=== PATIENT | male | born 1975 | race African-American/Black ===

== ENCOUNTER 2017-07-18 15:18 | Outpatient (CLI) | payer OTHER ==
[2017-07-18 19:47] LABS: CALCIUM 9.7 mg/dL (8.5-10.3)
== END 2017-07-18 15:19 | disposition home or self-care (01) ==
LOC: LAB.WCP 15:18
PROVIDERS: ATTEND Physician Assistant Medical
DX: Z51.81 Encounter for therapeutic drug level monitoring (principal); Z79.899 Other long term (current) drug therapy
CPT/HCPCS: 36415; 80048

== ENCOUNTER 2017-08-04 15:20 | Outpatient (CLI) | payer OTHER | END 2017-08-04 15:21 | disposition home or self-care (01) | LOC: SC 15:20 | PROVIDERS: ATTEND Internal Medicine Pulmonary Disease | DX: G47.33 Obstructive sleep apnea (adult) (pediatric) (principal) | CPT/HCPCS: 99203; 99212 ==

== ENCOUNTER 2017-09-24 22:07 | Outpatient (CLI) | payer OTHER | END 2017-09-24 22:08 | disposition home or self-care (01) | LOC: SC 22:07 | PROVIDERS: ATTEND Internal Medicine Pulmonary Disease | DX: G47.33 Obstructive sleep apnea (adult) (pediatric) (principal) | CPT/HCPCS: 95810 ==

== ENCOUNTER 2017-11-10 14:19 | Outpatient (CLI) | payer OTHER | END 2017-11-10 14:20 | disposition home or self-care (01) | LOC: SC 14:19 | PROVIDERS: ATTEND Nurse Practitioner Family | DX: G47.33 Obstructive sleep apnea (adult) (pediatric) (principal) | CPT/HCPCS: 99212; 99214 ==

== ENCOUNTER 2017-11-28 09:38 | Outpatient (CLI) | payer OTHER ==
--- NOTE | 2017-11-28 11:37 | Ultrasound Report ---
COMPLETE ABDOMINAL ULTRASOUND: 11/28/2017 CLINICAL INDICATION: Acute abdomen pain. TECHNIQUE: Real-time scanning was performed with member service representative static images obtained. FINDINGS: The liver measures 18 cm. Hepatic echogenicity appears unremarkable. No focal parenchymal lesion or intrahepatic biliary dilatation is present. The common bile duct measures 6 mm. There is a calculus in the fundus of the gallbladder, with localized tenderness, compatible with calculous cholecystitis. No pericholecystic fluid is seen. The kidneys are normal, with the right measuring 12.5 cm, and the left measuring 11.7 cm. The pancreas is obscured by bowel gas. The spleen measures 8 cm, and demonstrates normal echotexture. The visualized abdominal aorta is normal in caliber. The inferior vena cava is unremarkable. No free fluid is present. IMPRESSION: GALLSTONE, WITH LOCALIZED TENDERNESS OVER THE GALLBLADDER, COMPATIBLE WITH CALCULOUS CHOLECYSTITIS. NO EVIDENCE OF BILIARY OBSTRUCTION. TD: 11/28/2017 11:36
== END 2017-11-28 09:39 | disposition home or self-care (01) ==
LOC: DI 09:38
PROVIDERS: ATTEND Specialist
DX: K80.80 Other cholelithiasis without obstruction (principal)
CPT/HCPCS: 76700

== ENCOUNTER 2017-11-28 11:18 | Outpatient (CLI) | payer OTHER ==
[2017-11-28 11:47] LABS: BASOPHILS % (AUTO) 0.3 %; EOSINOPHILS # (AUTO) 0.1 10^3/uL (0.0-0.7); EOSINOPHILS % (AUTO) 0.6 %; HGB - HEMOGLOBIN 16.4 g/dL (14.0-18.0); LYMPHOCYTES # (AUTO) 1.1 10^3/uL (1.5-3.5); LYMPHOCYTES % (AUTO) 11.5 %; MEAN CORPUSCULAR HEMOGLOBIN 29.6 pg (27.0-31.0); MEAN CORPUSCULAR HGB CONC 34.2 g/dL (32.0-36.0); MEAN CORPUSCULAR VOLUME 86.6 fL (80.0-94.0); MEAN PLATELET VOLUME 8.4 fL (7.4-11.4); MONOCYTES # (AUTO) 1.4 10^3/uL (0.0-1.0); MONOCYTES % (AUTO) 14.2 %; NEUTROPHILS % (AUTO) 73.4 %; PLT - PLATELET COUNT 159 10^3/uL (130-450); RED BLOOD COUNT 5.55 10^6/uL (4.70-6.10); RED CELL DISTRIBUTION WIDTH 13.5 % (12.0-15.0); WHITE BLOOD COUNT 9.5 x10^3/uL (4.8-10.8)
[2017-11-28 12:00] LABS: ALBUMIN 3.9 g/dL (3.2-5.5); ALBUMIN/GLOBULIN RATIO 1.3 (1.0-2.2); BILIRUBIN,TOTAL 1.1 mg/dL (0.2-1.0); CALCIUM 8.9 mg/dL (8.5-10.3); CREATININE 0.6 mg/dL (0.6-1.2)
== END 2017-11-28 11:19 | disposition home or self-care (01) ==
LOC: LAB 11:18
PROVIDERS: ATTEND Specialist
DX: R10.0 Acute abdomen (principal)
CPT/HCPCS: 36415; 80053; 85025

== ENCOUNTER 2017-11-28 16:49 | Observation (INO) | payer OTHER ==
[2017-11-28] MEDS ORDERED: ONDANSETRON 4 MG/2 ML VIAL IVP STA (17:10)
[2017-11-28] MEDS ORDERED: SODIUM CHLORIDE 0.9% 1,000 ML IV ONE (17:10)
[2017-11-28] MEDS ORDERED: HYDROmorphone 1 MG/ML SYRINGE IVP STA ×2 (17:10→19:01)
--- NOTE | 2017-11-28 17:10 | ED Physician Documentation ---
PD HPI ABD PAIN - Stated complaint Stated Complaint: AB PX - Chief complaint Chief Complaint: Abd Pain - History obtained from History obtained from: Patient - History of Present Illness Timing - onset: Other (He had a remote appendectomy. He has had 3 days of coming and going central abdominal pain worse after eating but nonradiating associated with one episode of vomiting and some loose stools at the outset but now decreased bowel movements but still flatus. He was seen in a walk-in clinic and had lab work done and an ultrasound. The lab work was basically unremarkable and the ultrasound was notable for a impacted gallstone and tenderness over the gallbladder and he was referred here for surgical evaluation.) Review of Systems Ten Systems: 10 systems reviewed and negative Constitutional: denies: Fever, Chills Throat: denies: Dental pain / toothache, Sore throat Cardiac: denies: Chest pain / pressure, Palpitations Respiratory: denies: Dyspnea, Cough PD PAST MEDICAL HISTORY - Past Medical History Past Medical History: Yes Cardiovascular: Hypertension - Allergies Allergies/Adverse Reactions: Allergies Allergy/AdvReac Type Severity Reaction Status Date / Time No Known Drug Allergies Allergy Verified 07/17/16 12:24 - Social History Does the pt smoke?: Yes Smoking Status: Current every day smoker - Family History Family history: reports: Non contributory PD ED PE NORMAL - Vitals Vital signs reviewed: Yes - General General: Alert and oriented X 3, Other (uncomfortable) - HEENT HEENT: PERRL, EOMI - Neck Neck: Supple, no meningeal sign, No bony TTP - Cardiac Cardiac: RRR, No murmur - Respiratory Respiratory: No respiratory distress, Clear bilaterally - Abdomen Abdomen: Normal bowel sounds, Soft, Other (mild upper abd ttp) - Back Back: No CVA TTP, No spinal TTP - Derm Derm: Normal color, Warm and dry - Extremities Extremities: No edema, No calf tenderness / cord - Neuro Neuro: Alert and oriented X 3, Normal speech - Psych Psych: Normal mood, Normal affect Results - Vitals Vitals: Vital Signs - 24 hr 11/28/17 16:53 Temperature 36.2 C L Heart Rate 79 Respiratory 18 Rate Blood Pressure 139/91 H O2 Saturation 98 Oxygen O2 Source Room air PD MEDICAL DECISION MAKING - ED course ED course: Dr. Randolph arrived expeditiously after the patient arrived and evaluated the patient who felt more likely he had a bowel obstruction and he will place him in observation to have a contrast-enhanced CAT scan with NG tube contrast. Departure - Departure Disposition: ED Place in Observation Clinical Impression: Abdominal pain Qualifiers: Abdominal location: generalized Qualified Code(s): R10.84 - Generalized abdominal pain Condition: Stable
[2017-11-28] MEDS ORDERED: SODIUM CHLORIDE FLUSH 0.9% 10 ML SYRINGE IVP PRN (17:28)
[2017-11-28] MEDS ORDERED: ONDANSETRON 4 MG/2 ML VIAL IVP PRN (17:33)
[2017-11-28] MEDS ORDERED: HYDROmorphone 1 MG/ML SYRINGE IVP PRN ×2 (17:34)
[2017-11-28] MEDS ORDERED: LORazepam 2 MG/ML VIAL IVP PRN (17:41)
[2017-11-28] MEDS ORDERED: LIDOCAINE 2% URO-JET 5 ML SYRINGE UR STA (17:42)
[2017-11-28] MEDS ORDERED: IOPAMIDOL-300 100 ML VIAL ONE (17:43)
[2017-11-28] MEDS ORDERED: IOPAMIDOL-300 50 ML VIAL ONE (17:43)
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
[2017-11-28] MEDS ORDERED: IOPAMIDOL-300 100 ML VIAL IVP ONE (20:04)
[2017-11-28] MEDS ORDERED: IOPAMIDOL-300 50 ML VIAL PO ONE (20:04)
--- NOTE | 2017-11-28 20:44 | CT Report ---
EXAM: CT ABDOMEN AND PELVIS EXAM DATE: 11/28/2017 08:08 PM. CLINICAL HISTORY: IV and NGT contrast, per Dr Randolph for abd pain. COMPARISONS: Same day ultrasound. TECHNIQUE: Routine helical CT imaging was performed through the abdomen and pelvis. IV contrast: 100M L ISOVUE 300. Enteric contrast: No. Reconstructions: Coronal and sagittal. In accordance with CT protocol optimization, one or more of the following dose reduction techniques w ere utilized for this exam: automated exposure control, adjustment of mA and/or KV based on patient s ize, or use of iterative reconstructive technique. FINDINGS: Lung Bases: Unremarkable. Liver: Normal. No masses. Gallbladder/Bile Ducts: Cholelithiasis. Spleen: Normal. Pancreas: Normal. Adrenal Glands: Normal. Kidneys: Nonobstructing right renal stone measures 4 mm. No masses or hydronephrosis. Peritoneal Cavity/Bowel: Enteric tube terminates in the upper gastric body. Stomach is mildly distend ed. Dilated mid small bowel loops, mostly involving jejunum, with transition point to normal caliber ileum in the central mesentery (image 37 series 3). The transitioning bowel demonstrates mucosal thic kening in hyperenhancement. Mild mesenteric vascular engorgement. No free fluid, free air or adenopat hy. Prominent but not pathologically enlarged mesenteric lymph nodes. No pneumatosis. Scattered gas a nd stool throughout mostly decompressed colon. Pelvic Organs: Unremarkable. Vasculature: No aneurysms or other significant abnormality. Bones: No significant abnormality. Other: None. IMPRESSION: 1. Small bowel obstruction with transition point in the central mesentery. The bowel near the transit ion point demonstrates mucosal thickening and hyperenhancement, which may reflect enteritis, likely i nfectious or inflammatory. No pneumatosis or pneumoperitoneum. 2. Cholelithiasis. 3. Nonobstructing right renal stone. [facility] Referring Provider Line: [phone] SITE ID: [id number]
[2017-11-28 21:30] LABS: BILIRUBIN,URINE NEGATIVE (NEGATIVE); GLUCOSE, URINE (UA) NEGATIVE (NEGATIVE); KETONES,URINE (UA) NEGATIVE (NEGATIVE); LEUKOCYTE ESTERASE, URINE NEGATIVE (NEGATIVE); NITRITE,URINE NEGATIVE (NEGATIVE); OCCULT BLOOD,URINE NEGATIVE (NEGATIVE); PH,URINE 6.5 PH (5.0-7.5); PROTEIN,URINE NEGATIVE (NEGATIVE); UROBILINOGEN,URINE 0.2 (NORMAL) E.U./dL (NORMAL)
[2017-11-28 21:37] LABS: BACTERIA,URINE None Seen /HPF (None Seen); CLARITY,URINE CLEAR (CLEAR); RBC,URINE None Seen /HPF (0-5); SQUAMOUS EPITHELIAL CELL,UR NONE SEEN (<= Few)
[2017-11-28] MEDS: NS W/20 MEQ KCL 1,000 ML IV SCH (21:37)
[2017-11-28 21:38] LABS: CRYSTALS,URINE 3-5 Calcium Oxalate /LPF
[2017-11-28] MEDS: NICOTINE 7 MG PATCH TOP SCH (22:13)
[2017-11-29] MEDS: SODIUM CHLORIDE FLUSH 0.9% 10 ML SYRINGE IVP SCH ×2 (01:53→10:32)
[2017-11-29] MEDS: NS W/20 MEQ KCL 1,000 ML IV SCH ×3 (02:45→13:47)
--- NOTE | 2017-11-29 05:33 | XRAY Report ---
EXAM: ABDOMINAL SERIES AND PA CHEST EXAM DATE: 11/29/2017 05:18 AM. CLINICAL HISTORY: Abdominal pain. COMPARISON: Chest, 07/17/2016. TECHNIQUE: 2 views abdomen and 1 view chest. FINDINGS: CHEST: Lungs/Pleura: No alveolar consolidation or pleural effusion seen. No pneumothorax. Mediastinum: Within exam limitations, cardiomediastinal contour is normal. ABDOMEN: Bowel Gas Pattern: Persistent dilated small bowel loops with air-fluid levels. Free Air: None. Other: Enteric tube tip in the proximal stomach. IMPRESSION: 1. Small bowel obstruction. 2. Enteric tube tip in the proximal stomach. [facility] Referring Provider Line: [phone] SITE ID: [id number]
--- NOTE | 2017-11-29 05:33 | XRAY Preliminary Report ---
Exam: XR ABDOMEN ACUTE IMPRESSION: 1. Small bowel obstruction. 2. Enteric tube tip in the proximal stomach. [facility] SITE ID: [id number]
[2017-11-29 06:20] LABS: ALBUMIN 3.4 g/dL (3.2-5.5); ALBUMIN/GLOBULIN RATIO 1.2 (1.0-2.2); BILIRUBIN,TOTAL 1.2 mg/dL (0.2-1.0); CALCIUM 8.5 mg/dL (8.5-10.3); CREATININE 0.7 mg/dL (0.6-1.2); TOTAL PROTEIN 6.2 g/dL (6.7-8.2)
[2017-11-29 06:35] LABS: INR 1.2 (0.8-1.2); PT - PROTHROMBIN TIME 13.3 secs (9.9-12.6)
[2017-11-29] MEDS: NICOTINE 7 MG PATCH TOP SCH (08:24)
[2017-11-29] MEDS ORDERED: hydroCHLOROthiazide 12.5 MG CAPSULE PO SCH (09:00)
[2017-11-29] MEDS ORDERED: LISINOPRIL 5 MG TABLET PO SCH (09:00)
[2017-11-29] MEDS ORDERED: NS W/20 MEQ KCL 1,000 ML IV SCH (09:35)
[2017-11-29 15:44] VITALS: BP 126/83
--- NOTE | 2017-11-29 15:58 | Discharge Plan ---
Discharge Plan Disposition: 01 Home, Self Care Condition: Stable Diet: Soft Activity Restrictions: No Restrictions Shower Restrictions: No Driving Restrictions: No Weight Bearing: Full Weight No Smoking: If you smoke, Please STOP! Call for help. Follow-up with: FREDDY LAGUNAS [Primary Care Provider] - 1 Week
== END 2017-11-29 16:47 | disposition home or self-care (01) ==
LOC: ED 16:49 → OBS 17:28
PROVIDERS: ADMIT Surgery; ATTEND Surgery
DX: K56.609 Unspecified intestinal obstruction, unspecified as to partial versus complete obstruction (principal); K80.20 Calculus of gallbladder without cholecystitis without obstruction; N20.0 Calculus of kidney; I10 Essential (primary) hypertension; G47.33 Obstructive sleep apnea (adult) (pediatric); F41.0 Panic disorder [episodic paroxysmal anxiety]; F17.210 Nicotine dependence, cigarettes, uncomplicated; E66.9 Obesity, unspecified; Z68.38 Body mass index [BMI] 38.0-38.9, adult; Z91.19 Patient's noncompliance with other medical treatment and regimen
CPT/HCPCS: 36415; 74022; 74177; 76700; 80053; 81001; 85018; 85025; 85610; 96361; 96374; 96376; 99218; 99283; 99284; A9270; J1170; Q9967; 87086

== ENCOUNTER 2017-12-15 15:48 | Outpatient (CLI) | payer OTHER | END 2017-12-15 15:49 | disposition home or self-care (01) | LOC: SC 15:48 | PROVIDERS: ATTEND Nurse Practitioner Family | DX: G47.33 Obstructive sleep apnea (adult) (pediatric) (principal) | CPT/HCPCS: 99212; 99214 ==

== ENCOUNTER 2017-12-29 20:24 | Outpatient (CLI) | payer OTHER | END 2017-12-29 20:25 | disposition home or self-care (01) | LOC: SC 20:24 | PROVIDERS: ATTEND Internal Medicine Pulmonary Disease | DX: G47.33 Obstructive sleep apnea (adult) (pediatric) (principal) | CPT/HCPCS: 95811 ==

== ENCOUNTER 2018-02-09 15:01 | Outpatient (CLI) | payer OTHER | END 2018-02-09 15:02 | disposition home or self-care (01) | LOC: SC 15:01 | PROVIDERS: ATTEND Internal Medicine Pulmonary Disease | DX: G47.33 Obstructive sleep apnea (adult) (pediatric) (principal) | CPT/HCPCS: 99212; 99213 ==

== ENCOUNTER 2018-05-26 14:50 | Outpatient (CLI) | payer OTHER | END 2018-05-26 14:51 | disposition home or self-care (01) | LOC: SC 14:50 | PROVIDERS: ATTEND Internal Medicine Pulmonary Disease | DX: G47.33 Obstructive sleep apnea (adult) (pediatric) (principal) | CPT/HCPCS: 99212; 99213 ==

== ENCOUNTER 2019-01-22 14:44 | Outpatient (CLI) | payer OTHER ==
--- NOTE | 2019-01-22 15:29 | XRAY Report ---
Reason: KNEE PAIN,RIGHT Procedure Date: 01/22/2019 Accession Number: [id number] / [id number] Procedure: XR - Knee 3 View RT CPT Code: FULL RESULT: EXAM: RIGHT KNEE RADIOGRAPHY EXAM DATE: 01/22/2019 03:07 PM. CLINICAL HISTORY: KNEE Pain, right. COMPARISON: None. TECHNIQUE: 3 views. FINDINGS: Bones: There is an approximate 2 x 3 cm diameter nonaggressive radiolucent bone lesion in the anterior tibial plateau with faintly sclerotic margins. No acute osseous abnormality. Joints: Minimal medial compartment joint space narrowing. Mild patellofemoral osteoarthritis. No joint effusion. Soft Tissues: Normal. No soft tissue swelling. IMPRESSION: 1. No acute osseous abnormality or joint effusion. 2. Mild bicompartmental osteoarthritis as discussed above. 3. There is an approximate 3 cm maximal diameter nonaggressive bone lesion in the anterior tibial plateau. Because the patient has knee pain, the next imaging option would be MRI right knee without and with IV contrast. JHONATAN
== END 2019-01-22 14:45 | disposition home or self-care (01) ==
LOC: DI 14:44
PROVIDERS: ATTEND Physician Assistant Medical
DX: M17.11 Unilateral primary osteoarthritis, right knee (principal); M89.9 Disorder of bone, unspecified

== ENCOUNTER 2019-02-05 14:22 | Outpatient (CLI) | payer OTHER ==
[2019-02-05] MEDS ORDERED: GADOBUTROL 10 MMOL/10 ML VIAL ONE (16:03)
[2019-02-05] MEDS ORDERED: GADOBUTROL 10 MMOL/10 ML VIAL IVP ONE (16:21)
--- NOTE | 2019-02-07 15:26 | MRI Report ---
Reason: KNEE PAIN,RIGHT Procedure Date: 02/05/2019 Accession Number: [id number] / [id number] Procedure: MRI - Knee RT W/WO CPT Code: FULL RESULT: EXAM: RIGHT KNEE MRI WITHOUT AND WITH CONTRAST EXAM DATE: 02/05/2019 04:19 PM. CLINICAL HISTORY: Abnormal right knee radiography. Possible proximal tibial bone lesion. Right knee pain. COMPARISON: Right knee radiography from 01/22/2019 and RIGHT KNEE MRI from 06/01/2010 3:01 PM. TECHNIQUE: Multiplanar, multisequence T1-weighted and fluid-sensitive sequences of the knee before and after administration of intravenous contrast. IV contrast: . Other: None. FINDINGS: Bones and articular cartilage: As seen previously, there are postoperative changes at the distal femur and proximal tibia from previous ACL reconstruction. There is a partially ossified, approximately 1.2 x 0.9 x 2.7 cm proximal tibial tunnel ganglion which corresponds to the radiographic findings. The ganglion is smaller and now partially ossified in comparison to the previous MRI from 06/01/2010. There are marginal osteophytes at the femoral condyles, tibial plateau, patella, and femoral trochlea. Focal subcortical marrow edema at the central aspect of the medial femoral condyle. Grade II-III chondromalacia of the medial femoral condyle. Focal full-thickness articular cartilage fissure at the posterior lateral aspect of the medial femoral condyle. Grade II-III chondromalacia and mild subchondral marrow edema at the medial tibial plateau. Grade III chondromalacia of the lateral femoral condyle. Focal grade 1 signal and mild subchondral marrow edema at the median ridge of the patella. Focal full-thickness articular cartilage fissure at the femoral trochlear groove. No acute fracture or bone lesions. Medial Meniscus: The medial meniscus is partially absent which may be from previous partial meniscectomy and/or degeneration. There is an oblique tear extending through the inferior surface at the posterior horn. There is a focal vertically oriented tear at the inner third and lateral aspect of the posterior horn. The findings are new since the previous study. Lateral Meniscus: Horizontal tear extending through the free edge at the inner third of the anterior horn which is new since the previous study. Small oblique tear extending through the inferior surface at the inner third of the posterior horn. Cruciate Ligaments: Complete tear of the ACL graft. The posterior cruciate ligament is intact. Collateral Ligaments: The medial collateral and lateral collateral ligamentous structures are intact. Tendons: The quadriceps, patellar, semimembranosus, and popliteus tendons are unremarkable. Musculature: No edema or fatty atrophy. Other: Small joint effusion. Mild synovial thickening and enhancement. No loose bodies. No popliteal cyst. The medial and lateral retinacula are intact. Scar tissue within the infrapatellar fat pad. IMPRESSION: 1. Postoperative changes at the distal femur and proximal tibia from previous ACL reconstruction. There is a 1.2 x 0.9 x 2.7 cm partially ossified ganglion within the proximal tibial tunnel which corresponds to the radiographic findings. The ganglion is smaller and now partially ossified in comparison to previous MRI from 2010. 2. Tricompartmental osteoarthritis which has increased since the previous study. 3. Partially absent medial meniscus which may be from previous partial meniscectomy and/or degeneration. There are oblique and vertical tears at the remaining posterior horn of the medial meniscus which are new since the previous study. 4. Horizontal tear extending through the free edge at the inner third of the anterior horn lateral meniscus which is new since the previous study. Small oblique tear at the inner third of the posterior horn lateral meniscus. 5. Complete tear of the ACL graft. 6. Small joint effusion. Mild synovitis. [facility]
== END 2019-02-05 14:23 | disposition home or self-care (01) ==
LOC: DI 14:22
PROVIDERS: ATTEND Physician Assistant Medical
DX: M67.461 Ganglion, right knee (principal); M17.11 Unilateral primary osteoarthritis, right knee; S83.241A Other tear of medial meniscus, current injury, right knee, initial encounter; S83.281A Other tear of lateral meniscus, current injury, right knee, initial encounter; S83.511A Sprain of anterior cruciate ligament of right knee, initial encounter; M25.461 Effusion, right knee; M65.9 Synovitis and tenosynovitis, unspecified
CPT/HCPCS: 73723; A9585

== ENCOUNTER 2019-05-25 14:10 | Emergency (ER) | payer OTHER ==
--- NOTE | 2019-05-25 15:56 | XRAY Report ---
Reason: twisting injury posterior pain Procedure Date: 05/25/2019 Accession Number: [id number] / [id number] Procedure: XR - Knee 4 View LT CPT Code: FULL RESULT: EXAM: LEFT KNEE RADIOGRAPHY EXAM DATE: 05/25/2019 03:43 PM. CLINICAL HISTORY: Twisting injury posterior pain. COMPARISON: KNEE 3 VIEW RT 01/22/2019 2:55 PM. TECHNIQUE: 4 views. FINDINGS: Bones: No fractures or bone lesions. Joints: There is a small amount of effusion. No dislocation or significant degenerative process. Soft Tissues: There is soft tissue swelling along the lateral collateral ligament. IMPRESSION: 1. Soft tissue swelling along the lateral collateral ligament and small amount of knee joint effusion, concern for intra-articular soft tissue injury. 2. Negative for fracture or dislocation. [facility]
--- NOTE | 2019-05-25 16:00 | ED Physician Documentation ---
PD HPI LOWER EXT INJURY - Stated complaint Stated Complaint: KNEE INJURY - Chief complaint Chief Complaint: Trauma Ext - History obtained from History obtained from: Patient - History of Present Illness PD HPI LOW EXT INJURY LOCATION: Left, Knee Type of injury: Fall, Twist Where injury occurred: Work Timing - onset: Today Timing - duration: Minutes Timing - details: Abrupt onset, Still present Improved by: Rest, Immobilization Worsened by: Moving, Palpating Associated symptoms: No: Weakness, Numbness, Tingling, Swelling Similar symptoms before: Diagnosis (knee sprain) Recently seen: Not recently seen - Additional information Additional information: 44-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 He states his knee feels unstable and the pain is worse with weightbearing. He has a prior injury to his right knee and this is in an articulating brace now. He has not injured his left knee previously Review of Systems Constitutional: denies: Fever Ears: denies: Ear pain Nose: denies: Congestion Throat: denies: Sore throat Respiratory: denies: Cough GI: denies: Vomiting PD PAST MEDICAL HISTORY - Past Medical History Cardiovascular: Hypertension, High cholesterol, Other Respiratory: CPAP use Endocrine/Autoimmune: None GI: None : Other HEENT: Other Psych: Anxiety Musculoskeletal: Osteoarthritis, Chronic back pain, Other Derm: None - Past Surgical History General: Appendectomy Ortho: Knee replacement - Present Medications Home Medications: Ambulatory Orders Medication Instructions Recorded Confirmed RX: Lisinopril/Hydrochlorothiazide 1 tab PO DAILY 11/28/17 11/28/17 [Lisinopril-Hctz 10-12.5 mg Tab] RX: Multivitamin [Theragran] 1 tab PO DAILY 11/28/17 11/28/17 - Allergies Allergies/Adverse Reactions: Allergies Allergy/AdvReac Type Severity Reaction Status Date / Time No Known Drug Allergies Allergy Verified 07/17/16 12:24 - Social History Does the pt smoke?: Yes Smoking Status: Current every day smoker Does the pt have substance abuse?: Yes - POLST Patient has POLST: No POLST Status: Full Code PD ED PE NORMAL - Vitals Vital signs reviewed: Yes (tachy ) - General General: Alert and oriented X 3, No acute distress, Well developed/nourished - HEENT HEENT: Atraumatic, PERRL, EOMI - Neck Neck: Supple, no meningeal sign - Respiratory Respiratory: No respiratory distress - Derm Derm: Normal color, Warm and dry, No rash - Extremities Extremities: No deformity, Other (There is no obvious swelling or effusion. There is ligamentous laxity to the anterior drawer sign and not to the medial or lateral collateral ligaments. ) - Neuro Neuro: Alert and oriented X 3, liquor tester 2-12 intact, No motor deficit, No sensory deficit, Normal speech Eye Opening: Spontaneous Motor: Obeys Commands Verbal: Oriented GCS Score: 15 - Psych Psych: Normal mood, Normal affect Results - Vitals Vitals: Vital Signs - 24 hr 05/25/19 05/25/19 14:32 16:07 Temperature 36.5 C Heart Rate 103 H 93 Respiratory 14 18 Rate Blood Pressure 128/73 133/87 H O2 Saturation 98 100 Oxygen O2 Source Room air - Rads (name of study) knee Radiology: Prelim report reviewed (Impression: 1. Soft tissue swelling along the lateral collateral ligament and small amount of knee joint effusion, concern for intra-articular soft tissue injury. Negative for fracture or dislocation.), EMP read indepedently, See rad report PD MEDICAL DECISION MAKING - ED course Complexity details: reviewed results, re-evaluated patient, considered differential, d/w patient ED course: 44-year-old male with a twist injury to the left knee has some laxity to the anterior drawer test. He does have effusion on his x-ray of the knee. He is placed into a long-leg knee immobilizer and referred to orthopedics for further work-up and treatment. Departure - Departure Disposition: 01 Home, Self Care Clinical Impression: Sprain of left knee Condition: Stable Instructions: ED Meniscal Injury Knee Poss, ED Sprain Knee Follow-Up: Kristen Mnceil PA-C [Primary Care Provider] - [facility] [Provider Group] Forms: Activity restrictions Discharge Date/Time: 05/25/19 16:13
[2019-05-25 16:08] VITALS: BP 133/87
== END 2019-05-25 16:13 | disposition home or self-care (01) ==
LOC: ED 14:10
DX: S83.92XA Sprain of unspecified site of left knee, initial encounter (principal); X50.1XXA Overexertion from prolonged static or awkward postures, initial encounter; Y93.89 Activity, other specified; Y92.62 Dock or shipyard as the place of occurrence of the external cause; Y99.0 Civilian activity done for income or pay; I10 Essential (primary) hypertension; F17.200 Nicotine dependence, unspecified, uncomplicated
CPT/HCPCS: 99282

== ENCOUNTER 2019-06-09 12:38 | Outpatient (CLI) | payer OTHER ==
--- NOTE | 2019-06-09 16:25 | MRI Report ---
Reason: SPRAIN OF UNSPECIFED SITE OF LEFT KNEE Procedure Date: 06/09/2019 Accession Number: [id number] / [id number] Procedure: MRI - Knee LT W/O CPT Code: FULL RESULT: EXAM: LEFT KNEE MRI WITHOUT CONTRAST EXAM DATE: 06/09/2019 01:58 PM. CLINICAL HISTORY: Sprain of unspecified site of left knee. Knee pain after trauma. COMPARISON: None. TECHNIQUE: Multiplanar, multisequence T1-weighted and fluid-sensitive sequences of the knee without contrast. Other: None. FINDINGS: Bones: There is some focal increased T2 signal at the posterolateral tibial plateau corner, small focal impaction injury also seen. Series 1001 image 5. No other areas of marrow edema. Articular Cartilage: Unremarkable. Medial Meniscus: The medial meniscus is intact. Lateral Meniscus: The lateral meniscus is intact. Cruciate Ligaments: The proximal aspect of the ACL shows some irregularity, distal portion is swollen. No focal discrete fluid-filled gap is identified. Significant disorganization is seen at the expected attachment point to the lateral femoral condyle. Series 801 image 28. PCL is normal. Collateral Ligaments: The medial collateral and lateral collateral ligamentous structures are intact. Tendons: The quadriceps, patellar, semimembranosus, and popliteus tendons are unremarkable. Musculature: No edema or fatty atrophy. Other: Small joint effusion. No popliteal cyst. No loose bodies. The medial and lateral retinacula are intact. Small to moderate medial plica. Some subcutaneous edema and swelling seen medially. IMPRESSION: 1. Focal bone bruising seen at the posterolateral tibial plateau corner, there is an adjacent impaction fracture at the posterolateral tibial plateau corner. 2. High-grade partial-thickness tear at the proximal ACL. This may be a full-thickness tear, difficult to assess because the amount of edema which is present in the notch. PCL is normal. 3. Menisci, collaterals, patella and femur have a normal appearance. Moderate-sized joint effusion. Medial plica. Soft tissue swelling anteriorly. RADIA
== END 2019-06-09 12:39 | disposition home or self-care (01) ==
LOC: DI 12:38
PROVIDERS: ATTEND Orthopaedic Surgery Sports Medicine
DX: S82.142A Displaced bicondylar fracture of left tibia, initial encounter for closed fracture (principal); S83.512A Sprain of anterior cruciate ligament of left knee, initial encounter; M25.462 Effusion, left knee

== ENCOUNTER 2019-09-13 15:25 | Outpatient (CLI) | payer OTHER ==
[2019-09-13 15:43] LABS: BASOPHILS # (AUTO) 0.1 10^3/uL (0.0-0.1); BASOPHILS % (AUTO) 0.6 %; EOSINOPHILS # (AUTO) 0.2 10^3/uL (0.0-0.7); EOSINOPHILS % (AUTO) 1.8 %; HGB - HEMOGLOBIN 16.7 g/dL (14.0-18.0); LYMPHOCYTES # (AUTO) 2.3 10^3/uL (1.5-3.5); LYMPHOCYTES % (AUTO) 24.5 %; MEAN CORPUSCULAR HEMOGLOBIN 28.3 pg (27.0-31.0); MEAN CORPUSCULAR HGB CONC 32.6 g/dL (32.0-36.0); MEAN CORPUSCULAR VOLUME 86.9 fL (80.0-94.0); MEAN PLATELET VOLUME 9.7 fL (7.4-11.4); NEUTROPHILS # (AUTO) 5.7 10^3/uL (1.5-6.6); NEUTROPHILS % (AUTO) 61.3 %; PLT - PLATELET COUNT 197 10^3/uL (130-450); RED CELL DISTRIBUTION WIDTH 13.8 % (12.0-15.0); WHITE BLOOD COUNT 9.3 x10^3/uL (4.8-10.8)
[2019-09-13 16:01] LABS: ALBUMIN 4.1 g/dL (3.2-5.5); ALBUMIN/GLOBULIN RATIO 1.3 (1.0-2.2); BILIRUBIN,TOTAL 0.5 mg/dL (0.2-1.0); CALCIUM 9.5 mg/dL (8.5-10.3); CREATININE 0.9 mg/dL (0.6-1.2); TOTAL PROTEIN 7.3 g/dL (6.7-8.2)
== END 2019-09-13 15:26 | disposition home or self-care (01) ==
LOC: LAB 15:25
PROVIDERS: ATTEND Orthopaedic Surgery Sports Medicine
DX: Z01.812 Encounter for preprocedural laboratory examination (principal); S83.512D Sprain of anterior cruciate ligament of left knee, subsequent encounter
CPT/HCPCS: 36415; 80053; 80323; 81599; 85025

== ENCOUNTER 2019-09-15 06:12 | Day surgery (SDC) | payer OTHER ==
[2019-09-15] MEDS ORDERED: NEOSTIGMINE 1 MG/1 ML 10 ML MDV IVP ONE (06:13)
[2019-09-15] MEDS ORDERED: KETOROLAC 30 MG/ML VIAL IVP ONE (06:13)
[2019-09-15] MEDS ORDERED: GLYCOPYRROLATE 1 MG/5 ML VIAL IVP ONE (06:13)
[2019-09-15] MEDS ORDERED: ROCURONIUM 50 MG/5 ML VIAL IVP ONE (06:13)
[2019-09-15] MEDS ORDERED: MIDAZOLAM 2 MG/2 ML VIAL IVP ONE (06:13)
[2019-09-15] MEDS ORDERED: PROPOFOL 200 MG/20 ML VIAL IVP ONE (06:13)
[2019-09-15] MEDS ORDERED: CEFAZOLIN SODIUM IN 0.9 % NACL 2 GM/100 ML BAG IV ONE (06:23)
[2019-09-15] MEDS ORDERED: LACTATED RINGERS 1,000 ML IV ONE ×2 (06:28→08:49)
[2019-09-15] MEDS ORDERED: EPINEPHrine 1 MG/ML AMP ONE (06:53)
--- NOTE | 2019-09-15 07:15 | ANESTHESIA ---
Pre-Anesthesia VS, & Labs - Diagnosis L knee grade 3 ACL sprain - Procedure L AACL reconstruction w/autograft, hamstring Vital Signs: Temp Pulse Resp BP Pulse Ox 36 C L 79 16 137/98 H 97 09/15/19 06:28 09/15/19 06:28 09/15/19 06:28 09/15/19 06:28 09/15/19 06:28 Height 5 ft 9 in Weight (kg) 112.6 kg Body Mass Index 33.9 - NPO >8 hours - Lab Results Lab results reviewed: Yes Home Medications and Allergies Lisinopril/Hydrochlorothiazide [Lisinopril-Hctz 10-12.5 mg Tab] 1 tab PO DAILY 11/28/17 Allergies/Adverse Reactions: Allergies Allergy/AdvReac Type Severity Reaction Status Date / Time No Known Drug Allergies Allergy Verified 07/17/16 12:24 Anes History & Medical History - Anesthetic History Anesthesia Complications: reports: No previous complications Family history of Anesthesia Complications: Denies Family history of Malignant Hyperthermia: Denies - Medical History Cardiovascular: reports: Hypertension, High cholesterol, Other Pulmonary: reports: CPAP use Gastrointestinal: reports: None Urinary: reports: Other Musculoskeletal: reports: Osteoarthritis, Chronic back pain, Other Endocrine/Autoimmune: reports: None Blood Disorders: reports: None Skin: reports: None Smoking Status: Current every day smoker - Surgical History General: Appendectomy Orthopedic: Knee replacement Exam General: Alert, Oriented x3, Cooperative Dental: WNL Mouth Openin Fingerbreadth Neck Mobility: Normal Mallampati classification: II Thyromental Distance: 4-6 cm Respiratory: Lungs clear, Normal breath sounds, No respiratory distress Cardiovascular: Regular rate Neurological: Normal speech Mental/Cognitive Status: Alert/Oriented X3, Normal for patient Cognitive Status: Within normal limits Plan Anesthesia Type: General, Femoral Block Regional Block: Per Surgeon's request for Post Op pain control Consent for Procedure(s) Verified and Reviewed: Yes Code Status: Attempt Resuscitation ASA classification: 2-Mild systemic disease Is this case an emergency?: No
[2019-09-15] MEDS ORDERED: BUPIVACAINE 0.5% PF 30 ML VIAL ONE (07:27)
[2019-09-15] MEDS ORDERED: BUPIVACAINE 0.5% PF 30 ML VIAL INFIL ONE (08:21)
--- NOTE | 2019-09-15 10:12 | IMMEDIATE POSTOPERATIVE NOTE ---
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 Patient will follow standard postoperative left knee ACL reconstruction protocol. He would be nonweightbearing while femoral block and affect. After that we will weight-bear as tolerated with assistance and assistive device with knee brace locked in extension. At rest and while sleeping he will take his brace off. When sedentary she will do exercises for active assisted flexion extension of knee foot and ankle. He is given perioperative pain medication perioperative antibiotics perioperative aspirin recommendation for DVT prophylaxis for 1 month he will follow-up in 10 to 14 days or sooner should problems questions or worsening his condition should arise Above reviewed with him as well as his postoperatively. Questions answered. They are in agreement with the above.
[2019-09-15] MEDS ORDERED: ONDANSETRON 4 MG/2 ML VIAL IVP PRN (10:15)
[2019-09-15] MEDS ORDERED: oxyCODONE 5 MG TABLET PO PRN (10:15)
[2019-09-15] MEDS: fentaNYL 100 MCG/2 ML VIAL ONE ×2 (10:50→10:55)
[2019-09-15 11:49] VITALS: BP 137/89
--- NOTE | 2019-09-15 12:03 | OPERATIVE REPORT ---
DATE OF SERVICE: 09/15/2019 Physician: Troy Dwyer MD PREOPERATIVE DIAGNOSIS: Left grade 3 ACL sprain. POSTOPERATIVE DIAGNOSES: Left grade 3 ACL sprain, as well as grade 1-2 chondromalacia tricompartment al surgery, left knee arthroscopy assisted ACL reconstruction with hamstring autograft. SURGEON: Troy Dwyer MD RN PEDIATRIC ICU: None. ANESTHESIOLOGIST: Reji Schaffer CRNA. ANESTHESIA TYPE: General anesthesia as well as ultrasound-guided left lower extremity femoral nerve block, as well as approximately 7 mL of local 0.5% plain Marcaine. PREOPERATIVE ANTIBIOTICS: Two grams weight-based IV Ancef. FLUIDS: 1200 mL lactated Ringer's. ESTIMATED BLOOD LOSS: Less than 50 mL ORTHOPEDIC IMPLANTS: Arthrex ACL TightRope device as well as 10 mm BioComposite interference screw. INTRAOPERATIVE COMPLICATIONS: None noted. INTRAOPERATIVE FINDINGS: Patient noted to have grade 3 ACL sprain, positive ACL instability, which i s corrected post-procedure with full range of motion and negative ACL exam with anterior drawer, Lach man testing and pivot shift, positive preoperatively and negative postoperatively. HISTORY OF PRESENT ILLNESS AND INDICATIONS: Patient is a 44-year-old gentleman who sustained a left knee ACL sprain, was symptomatically unstable and indicated for operative treatment. Please see prev ious discussion of risks, benefits, alternatives. The patient's questions and the patient's 's q uestions were answered in the preoperative care unit. They verbalized understanding of the above as well as previous discussion, the patient verbalized wish to proceed with operative treatment, left kn ee as indicated. Informed consent previously given. PROCEDURE: On 09/15/2019, patient was identified in the preoperative care unit. He identifies his l eft knee as the operative site. This was signed by the operating surgeon. Patient received preopera tive: Weight-based IV Ancef. Left knee is shaved and then he is brought to the operating room. He is placed supine on the operating table. Head, neck and extremities are placed in anatomically comfo rtable and safe position to avoid peripheral nerve stretch compression. General anesthesia was admin istered. Patient's left lower extremity is well-padded, tourniquet placed high on the left thigh, ta natacha care to avoid encompassment of the genitalia. Patient's left knee and left lower extremity are then pre-scrubbed with Hibiclens solution, followed by alcohol followed by ChloraPrep and draped in s terile fashion. At this time, surgical pause identifies left knee as the operative site. At this time, Esmarch casas ge was used to exsanguinate the limb. Tourniquet is inflated to 275 mmHg. Please see nursing report for final tourniquet time. At this time, linear incision was made over the pes insertion through skin, spreading dissection was carried out to the sartorial fascia, which was elevated in an L-shaped fashion. Gracilis and semiten dinosus are harvested to maximal length, brought to the back table, muscular and fatty tissue removed and then #2 FiberWire was whipstitched into each end of each tendon. These are draped over and foun d to be approximately 9 mm and then draped over an ACL TightRope device set aside in a moist saline-s [employer]. In the meantime, local anesthesia was infused anteromedially anterolaterally superomedially and later al incision was made. Scope was introduced into the notch then into the suprapatellar pouch. Fluid is infused. Outflow portal was created superomedially and then an anteromedial incision is made. Pr obe is brought in. Diagnostic arthroscopy is carried out. Please see operative findings. At this t valarie, debridement of the residual ACL scar tissue is commenced and then the [id number] position is a chieved with a notchplasty using a combination of shaver and bur. Once this was achieved, then a tib ial guide set appropriately based on anatomy is set such that a guide pin could be brought to the ACL TightRope approximately 6 mm anterior to the PCL just posterior to the anterior horn lateral meniscu s with the appropriate angle. Once this was brought, the residual tissue around the entrance is debr ided and then the pnqf-map-xoq guide was brought to the 1:30 position. A guide pin is brought into t he femur and out through the lateral aspect of the femur out through the lateral skin and clamped and then with a 1.5 mm back wall, an approximately 25 mm femoral tunnel was drilled, leaving a 0.5 mm ba ck wall, which is confirmed. Bony debris was evacuated. Minimal metallic debris is evacuated with t he shaver and then the ACL TightRope and graft brought into the joint. With the guide pin which is b rought out laterally. The sutures from the ACL TightRope are brought such that the ACL TightRope but ton would toggle on the second cortex. This was tensioned and then the ACL was toggled into place at 20 to 23 mm of depth. At this point, isometry was tested and noted to have excellent isometry with minimal at the terminal degrees of extension. There is good lateral and anterior superior clearance. At this point, the knee was flexed approximately 20 degrees. Posterior drawer is administered. Gr aft limbs were pulled taut and then all guidewires brought between them and then an interference 10 m m BioComposite screw was placed with excellent compression fixation. The knee was examined. Negativ e ACL exam. The graft was taut, the white sutures of the ACL TightRope are then snugged up and then tied using a knot pusher on the lateral aspect of the femur. The knees were cut below skin level. At this time, the joint was copiously irrigated, reexamined and noted to be free of loose debris and then sartorial fascia was closed after irrigation of the tibial wound. This was done with 0 Vicryl, followed by repeat irrigation and then skin closed with 0 Vicryl, 2-0 Vicryl, and then Prolene subcut icular followed by Steri-Strips. A smaller incision is closed with interrupted nylon suture. Skin i s washed and dried. Xeroform dressing applied. Dry sterile dressings applied, ABD pad and Sof-Rol a nd Martin wrap applied. The patient was placed in a hinged knee brace locked in extension. The patient tolerated the procedure well. Instrument and sponge counts were correct. The patient wa s transferred to recovery room in stable condition. Will follow standard postoperative left knee ACL protocol. The patient's was contacted and case discussed. Perioperative medication plan with antibiotics, aspirin for DVT prophylaxis, analgesics as well as bowel regimen reviewed with the chavez nt. This has been reviewed with the patient's . This had been reviewed previously with the aishwarya lr himself. They verbalized understanding and satisfaction with the postoperative plans and instruc tions as well as precautions. He is advised to avoid weightbearing while the nerve block is working, then may bear weight with the knee brace locked in extension with assistance and assist device after that. When at rest he would remove the brace and work on range of motion. Knee, foot and ankle. H e will follow up in 10 to 14 days or sooner should problems, questions or worsening condition arise. The patient's 's questions were answered to her understanding and satisfaction with plan as outl ined as the patient preoperatively. TD: 09/15/2019 11:37
== END 2019-09-15 06:13 | disposition home or self-care (01) ==
LOC: SDS 06:12
PROVIDERS: ATTEND Orthopaedic Surgery Sports Medicine
PROC: 0LB Tendons, Excision (ICD-10-PCS; 2019-09-15)
PROC: 0MRP47Z Replacement of Left Knee Bursa and Ligament with Autologous Tissue Substitute, Percutaneous Endoscopic Approach (ICD-10-PCS; principal; 2019-09-15 07:30)
DX: S83.512A Sprain of anterior cruciate ligament of left knee, initial encounter (principal); X58.XXXA Exposure to other specified factors, initial encounter; I10 Essential (primary) hypertension; E78.00 Pure hypercholesterolemia, unspecified; F17.210 Nicotine dependence, cigarettes, uncomplicated; M19.90 Unspecified osteoarthritis, unspecified site; G89.29 Other chronic pain; M54.9 Dorsalgia, unspecified; M94.262 Chondromalacia, left knee; H54.7 Unspecified visual loss
CPT/HCPCS: 29888; A9270; C1713; J0690; J7120

== ENCOUNTER 2020-03-28 11:02 | Outpatient (CLI) | payer OTHER ==
--- NOTE | 2020-03-28 13:53 | XRAY Report ---
Reason: LEFT FOOT PAIN Procedure Date: 03/28/2020 Accession Number: [id number] / [id number] Procedure: WCP - Foot 3 View LT CPT Code: Final Report FULL RESULT: PROCEDURE: Foot 3 View LT INDICATIONS: LEFT FOOT PAIN TECHNIQUE: 3 views of the foot were acquired. COMPARISON: None FINDINGS: Bones: No fractures or dislocations. Small plantar calcaneal spur. No suspicious bony lesions. Soft tissues: No tibiotalar joint effusion. Achilles tendon appears normal. IMPRESSION: Left foot without acute fracture or significant degenerative change. Small plantar calcaneal enthesophyte/spur. Reviewed by: Milton Locke MD on 03/28/2020 1:51 PM PDT Approved by: Milton Locke MD on 03/28/2020 1:51 PM PDT Station ID: [id number]
== END 2020-03-28 11:03 | disposition home or self-care (01) ==
LOC: DI.WCP 11:02
PROVIDERS: ATTEND Orthopaedic Surgery
DX: M79.672 Pain in left foot (principal)

== ENCOUNTER 2020-03-31 17:36 | Outpatient (CLI) | payer OTHER ==
--- NOTE | 2020-04-01 09:25 | CT Report ---
PROCEDURE: LOWER EXTREMITY WO - LT INDICATIONS: REP STRAIN INJURY OF OF LT FOOT TECHNIQUE: Noncontrast 3 mm axial sections acquired of the left foot, with coronal and sagittal reformats. COMPARISON: Left foot radiographs dated 03/28/20. FINDINGS: Image quality: Excellent. Bones: Visualized osseous structures appear intact. No evidence for acute fracture or reactive lord es of subacute fracture healing. No suspicious intraosseous lesions. No abnormal periosteal reaction. Alignment is normal. Joint spaces appear maintained. There is a small plantar calcaneal enthesophyte with tiny anterior/distal framentation that is likely chronic in etiology. Soft tissues: Soft tissue appear unremarkable without suspicious mass lesions, fluid collections, or joint effusions. Unremarkable noncontrast appearance of the skin and musculature. IMPRESSION: 1. CT left foot without acute or subacute osseous abnormalities. 2. Plantar calcaneal enthesopathy. Recommend correlation for clinical symptoms of plantar fasciitis. If there is persistent concern for internal soft tissue derangement, consider further evaluation with MRI. Reviewed by: Milton Bertrand MD on 04/01/2020 9:23 AM PDT Approved by: Milton Bertrand MD on 04/01/2020 9:23 AM PDT Station ID: [id number]
== END 2020-03-31 17:37 | disposition home or self-care (01) ==
LOC: DI 17:36
PROVIDERS: ATTEND Physician Assistant
DX: M77.32 Calcaneal spur, left foot (principal); M70.972 Unspecified soft tissue disorder related to use, overuse and pressure, left ankle and foot

== ENCOUNTER 2021-02-14 08:00 | Outpatient (CLI) | payer OTHER ==
[2021-02-14 12:18] LABS: BASOPHILS # (AUTO) 0.1 10^3/uL (0.0-0.1); BASOPHILS % (AUTO) 0.6 %; EOSINOPHILS # (AUTO) 0.2 10^3/uL (0.0-0.7); EOSINOPHILS % (AUTO) 2.1 %; HCT - HEMATOCRIT 47.2 % (42.0-52.0); LYMPHOCYTES # (AUTO) 2.1 10^3/uL (1.5-3.5); MEAN CORPUSCULAR HEMOGLOBIN 28.5 pg (27.0-31.0); MEAN CORPUSCULAR HGB CONC 31.8 g/dL (32.0-36.0); MEAN CORPUSCULAR VOLUME 89.6 fL (80.0-94.0); MEAN PLATELET VOLUME 10.4 fL (7.4-11.4); MONOCYTES # (AUTO) 0.8 10^3/uL (0.0-1.0); NEUTROPHILS # (AUTO) 4.6 10^3/uL (1.5-6.6); NEUTROPHILS % (AUTO) 59.8 %; PLT - PLATELET COUNT 208 10^3/uL (130-450); RED BLOOD COUNT 5.27 10^6/uL (4.70-6.10); RED CELL DISTRIBUTION WIDTH 13.8 % (12.0-15.0); WHITE BLOOD COUNT 7.7 x10^3/uL (4.8-10.8)
[2021-02-14 12:19] LABS: ALBUMIN 4.3 g/dL (3.2-5.5); ALBUMIN/GLOBULIN RATIO 1.4 (1.0-2.2); ALKALINE PHOSPHATASE 74 IU/L (42-121); ALT ALANINE AMINOTRANSFERASE 30 IU/L (10-60); AST ASPARTATE AMINOTRANSFERASE 17 IU/L (10-42); BILIRUBIN,TOTAL 0.7 mg/dL (0.2-1.0); BUN - BLOOD UREA NITROGEN 23 mg/dL (6-20); CALCIUM 9.7 mg/dL (8.5-10.3); CARBON DIOXIDE - CO2 28 mmol/L (21-32); CHLORIDE 100 mmol/L (101-111); CHOL/HDL RATIO 5.4 (<5.0); CHOLESTEROL 233 mg/dL; CREATININE 0.9 mg/dL (0.6-1.2); GFR - MDRD 110 (>89); GLUCOSE 110 mg/dL (70-100); HDL CHOLESTEROL 43 mg/dL; LDL CHOLESTEROL,CALCULATED 159 mg/dL; LDL/HDL RATIO 3.7 (<3.6); POTASSIUM 4.1 mmol/L (3.5-5.0); SODIUM 137 mmol/L (135-145); TOTAL PROTEIN 7.3 g/dL (6.7-8.2); TRIGLYCERIDES 155 mg/dL; VLDL CHOLESTEROL 31 mg/dL
[2021-02-14 12:28] LABS: THYROID STIMULATING HORMONE 1.36 uIU/mL (0.34-5.60)
== END 2021-02-14 23:59 | disposition home or self-care (01) ==
LOC: LAB.WCP 08:00
PROVIDERS: ATTEND Physician Assistant Medical
DX: Z00.00 Encounter for general adult medical examination without abnormal findings (principal)
CPT/HCPCS: 36415; 80053; 80061; 83721; 84153; 84443; 85025

== ENCOUNTER 2023-02-21 09:00 | Outpatient (CLI) | payer MEDICAID, OTHER ==
[2023-02-21 11:57] LABS: BASOPHILS # (AUTO) 0.1 10^3/uL (0.0-0.1); BASOPHILS % (AUTO) 0.8 %; EOSINOPHILS # (AUTO) 0.2 10^3/uL (0.0-0.7); EOSINOPHILS % (AUTO) 2.8 %; HGB - HEMOGLOBIN 14.5 g/dL (14.0-18.0); LYMPHOCYTES # (AUTO) 2.4 10^3/uL (1.5-3.5); LYMPHOCYTES % (AUTO) 28.2 %; MEAN CORPUSCULAR HEMOGLOBIN 27.4 pg (27.0-31.0); MEAN CORPUSCULAR HGB CONC 31.5 g/dL (32.0-36.0); MEAN PLATELET VOLUME 10.7 fL (7.4-11.4); MONOCYTES % (AUTO) 11.3 %; NEUTROPHILS # (AUTO) 4.9 10^3/uL (1.5-6.6); NEUTROPHILS % (AUTO) 56.6 %; PLT - PLATELET COUNT 228 10^3/uL (130-450); RED BLOOD COUNT 5.29 10^6/uL (4.70-6.10); RED CELL DISTRIBUTION WIDTH 14.2 % (12.0-15.0); WHITE BLOOD COUNT 8.6 x10^3/uL (4.8-10.8)
[2023-02-21 12:52] LABS: ESTIMATED AVERAGE GLUCOSE 131 mg/dL (70-100); HEMOGLOBIN A1c% 6.2 % (4.27-6.07)
[2023-02-21 13:08] LABS: ALBUMIN 3.8 g/dL (3.2-5.5); ALBUMIN/GLOBULIN RATIO 1.1 (1.0-2.2); ALKALINE PHOSPHATASE 96 IU/L (42-121); ALT ALANINE AMINOTRANSFERASE 24 IU/L (10-60); AST ASPARTATE AMINOTRANSFERASE 17 IU/L (10-42); BILIRUBIN,TOTAL 0.4 mg/dL (0.2-1.0); BUN - BLOOD UREA NITROGEN 18 mg/dL (6-20); CALCIUM 9.3 mg/dL (8.5-10.3); CARBON DIOXIDE - CO2 25 mmol/L (21-32); CHLORIDE 105 mmol/L (101-111); CHOL/HDL RATIO 4.7 (<5.0); CHOLESTEROL 204 mg/dL; CREATININE 0.7 mg/dL (0.6-1.2); GFR - MDRD 145 (>89); GLUCOSE 102 mg/dL (70-100); HDL CHOLESTEROL 43 mg/dL; LDL CHOLESTEROL,CALCULATED 135 mg/dL; LDL/HDL RATIO 3.1 (<3.6); POTASSIUM 4.1 mmol/L (3.5-5.0); SODIUM 138 mmol/L (135-145); TOTAL PROTEIN 7.3 g/dL (6.7-8.2); TRIGLYCERIDES 131 mg/dL; VLDL CHOLESTEROL 26 mg/dL
== END 2023-02-21 09:15 | disposition home or self-care (01) ==
LOC: LAB.N 09:00
PROVIDERS: ATTEND Physician Assistant Medical
DX: E78.5 Hyperlipidemia, unspecified (principal)
CPT/HCPCS: 36415; 80053; 80061; 83036; 83721; 84443; 85025